=== PATIENT | male | born 1950 ===

== ENCOUNTER 2017-01-23 21:28 | Observation (INO) | payer OTHER ==
[~2017-01-23] VITALS: Ht 170.2 cm; Wt 87.2 kg
[2017-01-24] VITALS (10 sets, daily range): BP systolic 97–144; BP diastolic 50–77
--- NOTE | 2017-01-24 00:09 | ED CLINICAL REPORT ---
Clinical Report - Physicians/Mid Levels [facility] [address] [place] [address] 01/23/2017 21:36 Patient: GRACE VALADEZ Time Seen: 22:15. Arrived- By private vehicle. Historian- patient and family. HISTORY OF PRESENT ILLNESS Chief Complaint: ABDOMINAL PAIN. At its maximum, severity described as moderate. When seen in the E.D., severity described as moderate. Modifying factors- worsened by movement. Relieved by rest. This started today about 4 - 5 hours ago and is still present. It was gradual in onset and has been waxing/waning. It is described as "pain". No radiation. It is described as located in the right abdomen and right lower quadrant. The patient has had nausea and loss of appetite. No vomiting or diarrhea. Similar symptoms previously: None. Recent medical care: Not recently seen/assessed. REVIEW OF SYSTEMS No constipation, black stools, hematemesis, difficulty with urination or pain with urination. No urinary frequency, bloody stools, fever, headache or sore throat. No chest pain, difficulty breathing, cough or back pain. All systems otherwise negative, except as recorded above. PAST HISTORY Hypertension. Gastroesophageal reflux. Arthritis. Surgeries: No history of previous surgery. Additional Surgeries: no known surgeries. Medications: Enalapril Maleate Oral. Nabumetone Oral. Embrol injection. Uknown water pill. PriLOSEC Oral. Allergies: No Known Drug Allergy. SOCIAL HISTORY Never smoker. No alcohol use or drug use. Is a local resident. ADDITIONAL NOTES The nursing notes have been reviewed. PHYSICAL EXAM Vital Signs: 01/23/2017 21:49 BP: 150/70. HR: 66. RR: 24. O2 saturation: 94%. Temp: 97.4 F. Pain level now: 7/10. Appearance: Alert. Oriented X3. Eyes: Pupils equal, round and reactive to light. Eyes normal inspection. No scleral icterus or pale conjunctivae. ENT: Pharynx normal. No pharyngeal erythema or tonsillar exudate. The mucous membranes are not dry. Neck: Normal inspection. Neck supple. CVS: Normal heart rate and rhythm. Heart sounds normal. Pulses normal. Respiratory: No respiratory distress. Breath sounds normal. Abdomen: Soft. Moderate tenderness in the right side of the abdomen and right lower quadrant. No Strauss's sign present. Mild guarding present. No organomegaly. No mass. No rebound tenderness, distention or mass present. Back: Normal inspection. Skin: Skin warm and dry. Normal skin color. No rash. Normal skin turgor. Extremities: Extremities exhibit normal ROM. No lower extremity edema. Neuro: Oriented X 3. No motor deficit. LABS, X-RAYS, AND EKG Abdominal CT: Findings highly suspicious for appendiceal inflammation. Tubular structure measuring 10mm in diameter is identified contiguous with the inferior cecum, just below the terminal ileum. There is slight mesenteric fat stranding. Study type: abdomen and pelvis. Abdominal CT performed with IV contrast. The study was independently viewed by me, interpreted by the radiologist and discussed with the radiologist. Laboratory Tests: CBC w Diff: (GAGE: 01/23/2017 22:31) ( [facility] 01/23/2017 22:43) Final results Test Result Flag Units (Reference) WHITE BLOOD COUNT 15.1 H K/uL (4.5-11.5) RED BLOOD COUNT 5.14 M/uL (4.50-5.90) HEMOGLOBIN 15.1 gm/dL (13.5-17.5) HEMATOCRIT 45.6 % (41.0-53.0) MEAN CELL VOLUME 89 fL (80-100) MEAN CORPUSCULAR HGB 29 pg (26-34) MEAN CORPUSCULAR HGB CONC 33 g/dL (31-37) RED CELL DISTRIBUTION WIDTH 13.4 % (11.6-14.8) PLATELET COUNT 239 K/uL (150-400) LYMPH % 16.6 L % (25-40) MONO % 5.3 % (3-14) GRANULOCYTE % 78.1 CHEM 13 PANEL: (GAGE: 01/23/2017 22:31) ( [facility] 01/23/2017 23:13) Final results Test Result Flag Units (Reference) GLUCOSE 139 H mg/dL (70-110) BUN 18 mg/dL (7-18) CREATININE 1.3 mg/dL (0.6-1.3) Estimated GFR 58.35 mL/min Estimated GFR- >60 mL/min Note: Persistent reduction over 3 months in eGFR<60 mL/min/1.73 m2 defines CKD. Patients with eGFR values>=60 mL/min/1.73 m2 may also have CKD if evidence ofpersistent proteinuria. Additional information may be foundat www.kidney.org. SODIUM 143 mmol/L (136-145) POTASSIUM 3.9 mmol/L (3.5-5.1) CHLORIDE 106 mmol/L (98-107) CARBON DIOXIDE 29 mmol/L (21-32) CALCIUM 9.2 mg/dL (8.5-10.1) TOTAL PROTEIN 7.7 g/dL (6.4-8.2) ALBUMIN 3.7 g/dL (3.3-5.0) BILIRUBIN, TOTAL 0.6 mg/dL (0.0-1.0) ALKALINE PHOSPHATASE 55 U/L (46-116) AST (SGOT) 16 U/L (15-37) ALT (SGPT) 32 U/L (12-78) MAGNESIUM 2.0 mg/dL (1.8-2.4) LIPASE 212 U/L (73-393) AMYLASE 106 U/L (25-115) CPK 118 U/L (24-260) TROPONIN I <0.05 ng/mL (0.00-1.5) TROPONIN REFERENCE RANGE:<0.1 NEGATIVE0.1-1.5 INDETERMINANT>1.5 POSITIVE . Pulse Oximetry: 01/24/2017 01:59 O2 saturation: 97%. (FIO2 - room air). Interpretation: normal. PROGRESS AND PROCEDURES Course of Care: Normal Saline 1 liter IVPB given. Invanz 1 gram IVPB given. Zofran 4 mg IVP given. Dilaudid 0.5 mg IVP given. Patient is stable. Physical exam findings are improved. Symptoms much better. Pt with elevated WBC and CT that is highly suspicious for acute appy. Discussed case with on-call health care provider, (Serge). Reviewed test results. Agreed upon treatment plan. Health care provider will see patient in hospital. Patient/family counseled. Transition orders written. Disposition: Admitted to Acute Care. Condition: stable and improved. CLINICAL IMPRESSION Acute appendicitis. No perforation or abscess. (Electronically signed by Kayden Neri DO 01/24/2017 4:45)
--- NOTE | 2017-01-24 00:09 | ED NURSING NOTES ---
Clinical Report - Nurses [facility] [address] [place] [address] 01/23/2017 21:36 Patient: GRACE VALADEZ TRIAGE Triage time 21:49. Acuity: LEVEL 3. Chief Complaint: ABDOMINAL PAIN. Alert. ALLISON COMA SCORE: Allison Coma Scale: 15- eyes open spontaneously (4); best verbal response- oriented x 4 (5); best motor response- obeys commands (6). --21:54 Camron Espitia R.N. 21:49 01/23/17. BP: 150/70. HR: 66. RR: 24 (regular and unlabored). O2 saturation: 94% on room air. Temp: 97.4 F (oral). Pain level now: 04/01. --21:54 Camron Espitia R.N. Weight: 87 kg stated. Height/Length: 67 inches Per Patient. BMI: 30.1. --21:49 Camron Espitia R.N. Medications PriLOSEC Oral. --21:50 Camron Espitia R.N. Uknown water pill. --21:51 Camron Espitia R.N. Embrol injection. --21:51 Camron Espitia R.N. Enalapril Maleate Oral. Nabumetone Oral. --21:52 Camron Espitia R.N. Allergies No Known Drug Allergy. --21:50 Camron Espitia R.N. History Arrived by private vehicle. Historian: patient. Accompanied by friend. Onset. (4 - 5 hours ago). ( with gas). SOCIAL HX: Never smoker. No alcohol use or drug use. ( Denies SI/HI/ABUSE). ABUSE ASSESSMENT: No report of abuse. SELF HARM ASSESSMENT: A self harm assessment was performed. The patient answered "no" to the question "Do you have thoughts of harming or killing yourself?" and "Are you here because you tried to hurt yourself?". FALL RISK ASSESSMENT: Fall risk assessment completed. No fall risk identified. NUTRITIONAL RISK ASSESSMENT: The nutritional risk assessment revealed no deficiencies. FUNCTIONAL ASSESSMENT: Functional assessment: no impairments noted. LEARNING NEEDS ASSESSMENT: The learning needs assessment revealed no barriers. SKIN INTEGRITY ASSESSMENT: Skin integrity risk assessment completed. No skin integrity risk identified. --21:54 Camron Espitia R.N. PROBLEMS: Gastroesophageal Reflux Disease. Arthritis. Hypertension. --21:53 Camron Espitia R.N. ADDITIONAL SURGERIES: no known surgeries. Interventions ID band on patient. To treatment room. --21:54 Camron Espitia R.N. PHYSICAL ASSESSMENT Ambulatory to room. GENERAL / NEURO / PSYCH: Alert. Oriented X 4. Appears in pain. HEENT: Mucous membranes are pink. RESPIRATORY: Respirations not labored. Decreased breath sounds in the right lung base, mid-lung and upper lung. CVS: Capillary refill less than 2 seconds. GI / : Obesity. Abdominal distention. Abdomen soft. Abdominal tenderness diffusely. Hyperactive bowel sounds. SKIN: Skin is warm and dry. --21:56 Camron Espitia R.N. ( Urine sample requested and instructions given). --23:41 Camron Espitia R.N. NURSING PROGRESS NOTES Pulse oximeter and NIBP monitor placed on patient. Patient gowned. Reassurance given. Two patient identifiers checked. Call light placed in reach. Side rails up x 1. Bed placed in lowest position. Brakes of bed on. Patient ready for evaluation- chart flagged. Patient waiting for evaluation. --21:57 Camron Espitia R.N. 22:31 01/23/2017 Site #1 started via IV in the right antecubital space with an 18g angiocath, with aseptic technique and good blood return; one attempt. Blood drawn: rainbow set. Labeled in the presence of the patient and sent to the lab. Saline lock flushed with 10 mL saline. --22:37 Michaela Arteaga R.N. 22:39 01/23/2017 Started bag #1 1000 mL IV Fluids IV NS (Saline); bolus of 1000 mL wide open via site #1. Allergies verified and confirmed 5 rights. IV patency established. IV site checked: no pain, redness, or swelling. IV flushed thoroughly pre- and post-medication administration. --22:39 Michaela Arteaga R.N. 23:36 01/23/2017 Zofran (Ondansetron HCl) IVP 4 mg given over 1 minute(s) via site #1. Allergies verified and confirmed 5 rights. IV patency established. IV site checked: no pain, redness, or swelling. IV flushed thoroughly pre- and post-medication administration. IVP given by RN. --23:41 Camron Espitia R.N. 23:39 01/23/2017 Dilaudid (HYDROmorphone HCl PF) IVP 0.5 mg given over 2 minute(s) via site #1. Allergies verified, confirmed 5 rights and sedative warning given to the patient. IV patency established. IV site checked: no pain, redness, or swelling. IV flushed thoroughly pre- and post-medication administration. IVP given by RN. --23:41 Camron Espitia R.N. 00:31 01/24/2017 Invanz IVP 1 gm given over 30 minute(s) via site #1. Allergies verified and confirmed 5 rights. IV patency established. IV site checked: no pain, redness, or swelling. IV flushed thoroughly pre- and post-medication administration. IVP given by RN. --00:31 Camron Espitia R.N. DISPOSITION / DISCHARGE Departure time: 02:04. Condition at departure: stable. Admitted (rm 210B). Transported via wheelchair by nurse with IV. Report was given to a nurse via a phone call. Report included patient's care, treatment, medications, reviewed medication reconcilliation, and condition (including any recent changes or anticipated changes). All questions were answered. Report was acknowledged. (report to leny MEDINA). Patient's personal items include: shirt, pants, socks and shoes; items were placed in belongings bag and transported with the patient. --02:05 Camron Espitia R.N. 01:59 01/24/17. BP: 123/68. HR: 100. RR: 20 (regular and unlabored). O2 saturation: 97% on room air. Pain level now: 11/30. --02:05 Camron Espitia R.N. Locked/Released at 01/24/2017 2:05 by Camron Espitia R.N.
--- NOTE | 2017-01-24 00:10 | ED ORDER SUMMARY ---
..... Patient: GRACE VALADEZ OrderSheet [facility] VisitID: [id number] [place] [address] 66y, M Registration Date/Time: 01/23/2017 ORDER SHEET Weight: 87.0 kg (stated) Allergies: No Known Drug Allergy GENERAL ORDERS: CBC w Diff Urgent (22:00 01/23/2017 DDavis R.N. per protocol) (Ack 22:03 CHagerty ER Support Worker) (22:20 PHutchinson DO) (Cancelled: Duplicate Order22:20 PHutchinson DO) CMP Urgent (22:00 01/23/2017 DDavis R.N. per protocol) (Ack 22:03 [facility]ty ER Support Worker) (22:21 PHutchinson DO) (Cancelled: Duplicate Order22:21 PHutchinson DO) UA-Culture if indicated Urgent (22:00 01/23/2017 DDavis R.N. per protocol) (Ack 22:03 [facility] Support Worker) (0:13 DDavis R.N.) Amylase Urgent (22:00 01/23/2017 DDavis R.N. per protocol) (Ack 22:03 [facility]ty ER Support Worker) (22:37 CBradburn R.N.) Lipase Urgent (22:00 01/23/2017 DDavis R.N. per protocol) (Ack 22:03 [facility] ER Support Worker) (22:37 CBradburn R.N.) Cardiac Panel Stat (22:21 01/23/2017 PHutchinson DO) (Ack 22:30 [facility]ty [facility] Support Worker) (22:37 CBradburn R.N.) CT Abd/Pel w Cont (No) (N/A) (WBC 15K; Right mid - lower abd pain) Urgent (22:55 01/23/2017 PHutchinson DO) (Ack 23:03 CH[facility]ty ER Support Worker) (0:09 Sherlyn) Call (Place call to): (Dr Valentine) (00:11 01/24/2017 PHutchinson DO) (Ack 0:15 CH[facility]ty [facility] Support Worker) (0:32 CHagerty ER Support Worker) MEDICATION ORDERS: IV FLUIDS: IV Saline Lock (22:00 01/23/2017 DDavis R.N. per protocol) (22:38 CBradburn R.N.) IV NS : initial bolus 1000 mL (1000 mL/hr), then 500 mL/hr for X2 (NOW) (22:21 01/23/2017 [facility]) (Ack 22:38 CBradburn R.N.) (22:39 CBradburn R.N.) Zofran IV 4 mg (NOW) (23:28 01/23/2017 [facility]) (23:41 DDavis R.N.) Dilaudid IV 0.5 mg (january repeat x 1 prn pain) (23:28 01/23/2017 [facility]) (23:41 DDavis R.N.) Invanz IV 1 gm (NOW) (00:11 01/24/2017 [facility]) (0:31 DDavis R.N.) ORDER SHEET NOTES: [Electronically signed by Camron Espitia R.N. (02:05 01/24/2017)] [Electronically signed by Kayden Neri DO (04:45 01/24/2017)] [Electronically locked/signed by Camron Espitia R.N. (02:05 01/24/2017)]
--- NOTE | 2017-01-24 00:10 | ED ORDER SUMMARY ---
..... Patient: GRACE VALADEZ OrderSheet [facility] VisitID: [id number] [place] [address] 66y, M Registration Date/Time: 01/23/2017 ORDER SHEET Weight: 87.0 kg (stated) Allergies: No Known Drug Allergy GENERAL ORDERS: CBC w Diff Urgent (22:00 01/23/2017 DDavis R.N. per protocol) (Ack 22:03 [facility]ty [facility]) (22:20 PHutchinson DO) (Cancelled: Duplicate Order22:20 PHutchinson DO) CMP Urgent (22:00 01/23/2017 DDavis R.N. per protocol) (Ack 22:03 [facility]) (22:21 PHutchinson DO) (Cancelled: Duplicate Order22:21 PHutchinson DO) UA-Culture if indicated Urgent (22:00 01/23/2017 DDavis R.N. per protocol) (Ack 22:03 [facility]) (0:13 DDavis R.N.) Amylase Urgent (22:00 01/23/2017 DDavis R.N. per protocol) (Ack 22:03 [facility]) (22:37 CBradburn R.N.) Lipase Urgent (22:00 01/23/2017 DDavis R.N. per protocol) (Ack 22:03 [facility]) (22:37 CBradburn R.N.) Cardiac Panel Stat (22:21 01/23/2017 PHutchinson DO) (Ack 22:30 [facility]) (22:37 CBradburn R.N.) CT Abd/Pel w Cont (No) (N/A) (WBC 15K; Right mid - lower abd pain) Urgent (22:55 01/23/2017 PHutchinson DO) (Ack 23:03 [facility]) (0:09 Sherlyn) Call (Place call to): (Dr Valentine) (00:11 01/24/2017 PHutchinson DO) (Ack 0:15 [facility]) (0:32 [facility]) MEDICATION ORDERS: IV FLUIDS: IV Saline Lock (22:00 01/23/2017 DDavis R.N. per protocol) (22:38 CBradburn R.N.) IV NS : initial bolus 1000 mL (1000 mL/hr), then 500 mL/hr for X2 (NOW) (22:21 01/23/2017 [facility]) (Ack 22:38 CBradburn R.N.) (22:39 CBradburn R.N.) Zofran IV 4 mg (NOW) (23:28 01/23/2017 [facility]) (23:41 DDavis R.N.) Dilaudid IV 0.5 mg (january repeat x 1 prn pain) (23:28 01/23/2017 [facility]) (23:41 DDavis R.N.) Invanz IV 1 gm (NOW) (00:11 01/24/2017 [facility]) (0:31 DDavis R.N.) ORDER SHEET NOTES: [Electronically signed by Camron Espitia R.N. (02:05 01/24/2017)] [Electronically signed by Kayden Neri DO (04:45 01/24/2017)] [Electronically locked/signed by Camron Espitia R.N. (02:05 01/24/2017)]
[2017-01-24] MEDS ORDERED: ENBREL25 MG (02:01)
[2017-01-24] MEDS ORDERED: ASPIRIN ADULT L81 M1 PO (04:36)
[2017-01-24] MEDS ORDERED: LISINOPRIL10 MG PO (04:37)
[2017-01-24] MEDS ORDERED: NABUMETONE750 MG PO (04:39)
[2017-01-24] MEDS ORDERED: PRILOSEC20 MG PO (04:40)
--- NOTE | 2017-01-24 04:45 | ED DISCHARGE INSTRUCTIONS ---
Patient: GRACE VALADEZ General Instructions VisitID: [id number] [address] [place] [address] 66y, M Registration Date/Time: 01/23/2017 Acute appendicitis. No perforation or abscess. (Electronically signed by Kayden Neri DO 01/24/2017 4:45)
--- NOTE | 2017-01-24 04:45 | ED MED RECONCILIATION SUMMARY ---
Patient: GRACE VALADEZ Medication Reconciliation Report [facility] VisitID: [id number] [address] [place] [address] 66y, M Registration Date/Time: 01/23/2017 Weight: 87.0 kg Height/Length: 67 in. BMI: 30.1 ALLERGIES: No Known Drug Allergy The patient's Home Medications are listed below: THE FOLLOWING MEDICATIONS NEED TO BE RECONCILED: Embrol injection Enalapril Maleate Oral Nabumetone Oral PriLOSEC Oral Uknown water pill The source(s) of the original Home Medication information: Not obtained. The following Medications were given to the patient in the Emergency Department: IV NS IV Fluids bolus 1000 mL wide open, administered: 01/23/2017 10:39:00 PM Zofran [IVP] IVP 4 mg, administered: 01/23/2017 11:36:00 PM Dilaudid [IVP] IVP 0.5 mg, administered: 01/23/2017 11:39:00 PM Invanz [IVP] IVP 1 gm, administered: 01/24/2017 12:31:00 AM The following Medications were prescribed to the patient: None.
--- NOTE | 2017-01-24 04:45 | ED MAR SUMMARY ---
..... Medication Administration Record [facility] [address] [place] [address] Patient: GRACE VALADEZ Visit ID: [id number] 66y, M Weight: 87.0 kg Height/Length: 67 in BMI: 30.1 ALLERGIES: No Known Drug Allergy Start 22:39 01/23/2017 Michaela Arteaga R.N. Medication Administered: IV NS (SALINE), Dose: IV Fluids, Bolus: 1000 mL wide open, Dispensed: 1000 mL bag, Site: #1 right AC. Medication Ordered: IV NS : initial bolus 1000 mL (1000 mL/hr), then 500 mL/hr for X2 (NOW). Given 23:36 01/23/2017 Camron Espitia R.N. Medication Administered: ZOFRAN [IVP] (ONDANSETRON HCL), Dose: 4 mg IVP over 1 minute(s), Site: #1 right AC. Medication Ordered: Zofran IV 4 mg (NOW). Given 23:39 01/23/2017 Camron Espitia R.N. Medication Administered: DILAUDID [IVP] (HYDROMORPHONE HCL PF), Dose: 0.5 mg IVP over 2 minute(s), Site: #1 right AC. Medication Ordered: Dilaudid IV 0.5 mg (may repeat x 1 prn pain). Given 00:31 01/24/2017 Camron Espitia R.N. Medication Administered: INVANZ [IVP], Dose: 1 gm IVP over 30 minute(s), Site: #1 right AC. Medication Ordered: Invanz IV 1 gm (NOW).
--- NOTE | 2017-01-24 04:45 | ED MAR SUMMARY ---
..... Medication Administration Record [facility] [address] [address] Patient: GRACE VALADEZ Visit ID: [id number] 66y, M Weight: 87.0 kg Height/Length: 67 in BMI: 30.1 ALLERGIES: No Known Drug Allergy Start 22:39 01/23/2017 Michaela Arteaga R.N. Medication Administered: IV NS (SALINE), Dose: IV Fluids, Bolus: 1000 mL wide open, Dispensed: 1000 mL bag, Site: #1 right AC. Medication Ordered: IV NS : initial bolus 1000 mL (1000 mL/hr), then 500 mL/hr for X2 (NOW). Given 23:36 01/23/2017 Camron Espitia R.N. Medication Administered: ZOFRAN [IVP] (ONDANSETRON HCL), Dose: 4 mg IVP over 1 minute(s), Site: #1 right AC. Medication Ordered: Zofran IV 4 mg (NOW). Given 23:39 01/23/2017 Camron Espitia R.N. Medication Administered: DILAUDID [IVP] (HYDROMORPHONE HCL PF), Dose: 0.5 mg IVP over 2 minute(s), Site: #1 right AC. Medication Ordered: Dilaudid IV 0.5 mg (may repeat x 1 prn pain). Given 00:31 01/24/2017 Camron Espitia R.N. Medication Administered: INVANZ [IVP], Dose: 1 gm IVP over 30 minute(s), Site: #1 right AC. Medication Ordered: Invanz IV 1 gm (NOW).
--- NOTE | 2017-01-24 04:45 | ED MED RECONCILIATION SUMMARY ---
Patient: GRACE VALADEZ Medication Reconciliation Report [facility] VisitID: [id number] [address] [place] [address] 66y, M Registration Date/Time: 01/23/2017 Weight: 87.0 kg Height/Length: 67 in. BMI: 30.1 ALLERGIES: No Known Drug Allergy The patient's Home Medications are listed below: THE FOLLOWING MEDICATIONS NEED TO BE RECONCILED: Embrol injection Enalapril Maleate Oral Nabumetone Oral PriLOSEC Oral Uknown water pill The source(s) of the original Home Medication information: Not obtained. The following Medications were given to the patient in the Emergency Department: IV NS IV Fluids bolus 1000 mL wide open, administered: 01/23/2017 10:39:00 PM Zofran [IVP] IVP 4 mg, administered: 01/23/2017 11:36:00 PM Dilaudid [IVP] IVP 0.5 mg, administered: 01/23/2017 11:39:00 PM Invanz [IVP] IVP 1 gm, administered: 01/24/2017 12:31:00 AM The following Medications were prescribed to the patient: None.
--- NOTE | 2017-01-24 04:45 | ED DISCHARGE INSTRUCTIONS ---
Patient: GRACE VALADEZ General Instructions [facility] VisitID: [id number] [address] [place] [address] 66y, M Registration Date/Time: 01/23/2017 Acute appendicitis. No perforation or abscess. (Electronically signed by Kayden Neri DO 01/24/2017 4:45)
--- NOTE | 2017-01-24 06:28 | Consultation Report ---
Admission Admit Date 01/24/17 History Chief Complaint Right lower quadrant abdominal pain History of Present Illness 66-year-old male who approximately 14 hours ago developed acute onset right lower quadrant abdominal pain. Localized. Constant. Sharp. Exacerbated by coughing or moving. Associated with nausea and chills but no vomiting or fever or diarrhea. Patient denies any prior history of abdominal pain like this in the past. PAST MEDICAL SURGICAL: Tonsillectomy and adenoidectomy Bilateral cataract extraction Psoriatic arthritis ALLERGIES: None FAMILY HISTORY: MOTHER age/health status unknown FATHER age/health status unknown 4 brothers and 3 sisters alive and well. Patient History 1. Acute appendicitis Social History 2 sons and 2 daughters alive and well Patient stopped smoking 15-20 years ago Patient does not drink alcohol Patient drinks 3-4 cups of coffee per day Patient does not use recreational drugs. Patient is a septic intermodal truck driver by occupation No service. Medications and Allergies Medications MEDICATION: Patient is on a antihypertensive medication that he cannot really name Patient is also on a medication for his stomach that he cannot remember Patient receives IM injection once a week for his psoriatic arthritis Current Medications Sig/Dilan Start time Last Medication Dose Route Stop Time Status Admin Famotidine/Sodium 50 ML Q12HR 01/24 0900 AC Chloride IV Metoclopramide HCl 10 MG Q6HR 01/24 0600 AC 01/24 IV 0534 Lactated Ringer's 1,000 ML ASDIRECTED 01/24 0115 AC / IV 0232 Meperidine HCl 12.5 MG Q30MIN PRN 01/24 0115 AC IV Ondansetron HCl 4 MG Q6H PRN 01/24 0115 AC IV Allergies Coded Allergies: NKA (01/24/17) Review of Systems Other Patient denies any history of hepatitis, jaundice, rheumatic fever, heart murmurs requiring antibiotics, bleeding tendencies, or blood transfusions. 12 point review of systems negative. Physical Exam Vital Signs / I&Os Vital Signs Date Time Temp Pulse Resp B/P Pulse O2 O2 Flow FiO2 Ox Delivery Rate 01/24 618 100.2 133 21 114/65 95 / 0448 100.8 108 15 117/58 94 Room Air / 0345 98.4 102 14 140/77 98 Room Air / 0219 97.5 101 15 144/76 97 Room Air / 0105 98.6 86 18 144/67 99 Room Air General Appearance Alert, Oriented X3, Cooperative, Mild distress HEENT Normal exam, Atraumatic, PERRLA, EOMI, patient wearing upper and lower dentures. Lungs Clear to auscultation Neck Supple, No JVD, No masses, No thyromegaly, No lymphadenopathy Cardiovascular Regular rate and rhythm Abdomen Normal bowel sounds, nondistended. No tympany. localized guarding right lower quadrant. Extremities No edema Skin no peripheral cyanosis Neurological No lateralizing signs Psych/Mental Status Mood normal Other Patient has a flexure contracture this digit left hand LAB Results Laboratory Tests 01/23 01/23 01/24 2200 2231 0001 Chemistry Plasma Sodium (136 - 145 mmol/L) 143 Plasma Potassium (3.5 - 5.1 mmol/L) 3.9 Plasma Chloride (98 - 107 mmol/L) 106 CO2 (Enzymatic) (21 - 32 mmol/L) 29 BUN (7 - 18 mg/dL) 18 Creatinine (0.6 - 1.3 mg/dL) 1.3 Est GFR ( Amer) (mL/min) >60 Est GFR (Non-Af Amer) (mL/min) 58.35 Glucose (70 - 110 mg/dL) 139 Plasma Calcium (8.5 - 10.1 mg/dL) 9.2 Plasma Magnesium (1.8 - 2.4 mg/dL) 2.0 Total Bilirubin (0.0 - 1.0 mg/dL) 0.6 AST (15 - 37 U/L) 16 ALT (12 - 78 U/L) 32 Alkaline Phosphatase (46 - 116 U/L) 55 Creatine Kinase (24 - 260 U/L) 118 Troponin (0.00 - 1.5 ng/mL) <0.05 Total Protein (6.4 - 8.2 g/dL) 7.7 Albumin (3.3 - 5.0 g/dL) 3.7 Amylase (25 - 115 U/L) Cancelled 106 Lipase (73 - 393 U/L) Cancelled 212 Hematology WBC (4.5 - 11.5 K/uL) Cancelled 15.1 RBC (4.50 - 5.90 M/uL) Cancelled 5.14 Hgb (13.5 - 17.5 gm/dL) Cancelled 15.1 Hct (41.0 - 53.0 %) Cancelled 45.6 MCV (80 - 100 fL) Cancelled 89 MCH (26 - 34 pg) Cancelled 29 RDW (11.6 - 14.8 %) Cancelled 13.4 Gran % 78.1 Lymph % (Auto) (25 - 40 %) 16.6 [place] % (Auto) (3 - 14 %) 5.3 Plt Count, EDTA (150 - 400 K/uL) Cancelled 239 PUBS MCHC (31 - 37 g/dL) Cancelled 33 Urines Urine Color YELLOW Urine Appearance CLEAR Urine pH (5.0 - 8.0) 7.0 Ur Specific [place] (1.010 - 1.030) <= 1.005 Urine Protein (NEGATIVE) NEGATIVE Urine Ketones (NEGATIVE) NEGATIVE Urine Blood (NEGATIVE) NEGATIVE Urine Nitrite (NEGATIVE) NEGATIVE Urine Bilirubin (NEGATIVE) NEGATIVE Urine Urobilinogen (0.2 - 1.0 EU/dL) 0.2 Ur Leukocyte Esterase (NEGATIVE) NEGATIVE Urine RBC (0 - 1 rbc/hpf) 0-1 Urine WBC (0 - 1 wbc/hpf) 0-1 Ur Epithelial Cells (0 - 5 EPI/hpf) 0-1 Urine Bacteria (NONE SEEN) NONE SEEN Urine Glucose (NEGATIVE) NEGATIVE Urine Comment CULT NOT INDICATED Imaging CAT scan consistent with acute appendicitis as interpreted by radiology. Assessment and Plan Problem List 1. Acute appendicitis Plan Acute appendicitis. Plan laparoscopic appendectomy. The procedure has been explained to the patient including the potential risks of trocar site hernia, infection, intra-abdominal infection, and damage to local structures. Patient understands and agrees to proceed. We will schedule him for emergent laparoscopic appendectomy.
--- NOTE | 2017-01-24 07:12 | DIAGNOSTIC IMAGING REPORT ---
PROCEDURE: ABDOMEN/PELVIS WITH CONTRAST CLINICAL INDICATION: ABDOMINAL PAIN TECHNIQUE: 125 ml of Isovue 300 were injected intravenously and axial images were obtained of the abdomen and pelvis with sagittal and coronal reformations. COMPARISON: None. FINDINGS: ABDOMEN: Clear lung bases. Normal sized heart. Tiny hiatal hernia. Air fluid level in the distal esophagus. The liver, gallbladder, adrenal glands, kidneys, pancreas and spleen are normal. The abdominal aorta is normal in its course and caliber. Mild calcific atherosclerosis. There are no suspicious calcifications, retroperitoneal adenopathy or masses. The stomach, upper bowel loops, and mesentery are normal. Intact anterior abdominal wall. No free fluid or inflammation. The appendix is fluid-filled, dilated up to 14 mm, and demonstrates trace rosi appendiceal fat stranding. No adjacent fluid, extraluminal gas, or focal fluid collection. PELVIS: The pelvic small bowel loops are normal. Normal amount of stool in the colon and rectum. The prostate gland is mildly enlarged. The seminal vesicles, urinary bladder, and pelvic vessels are normal. No adenopathy, free fluid, or pelvic mass. Moderate to severe disc degeneration at L4-5 and L5-S1. IMPRESSION: 1. Dilated, fluid-filled, and mildly inflamed appendix consistent with early/uncomplicated acute appendicitis. 2. Preliminary report by Dr. Je Tanner of [facility] radiology. All CT scans at this facility use dose modulation, iterative reconstruction, and/or weight-based dosing when appropriate to reduce radiation dose to as low as reasonably achievable.
--- NOTE | 2017-01-24 11:21 | Operative Report ---
Operative Report Date of Surgery: 01/24/17 Preoperate Diagnosis: acute appendicitis Postoperative Diagnosis: acute appendicitis Surgeon: Raymond Valentine MD Microfilm Camera Operator Surgeon: none Procedure Performed: Arthroscopic appendectomy Anesthesia: Gen. endotracheal Indications: 66-year-old male admitted with a 14 hour history of progressive right lower quadrant abdominal pain. Emergency room evaluation CT scan showed evidence consistent with appendicitis FINDINGS: Acute hemorrhagic the mesoappendix and hemorrhagic additional appendicitis. Surgical Technique: Patient brought to the operating room. Placed in the dorsal supine position. Patient underwent general endotracheal anesthesia by the anesthesiology department. After proper anesthesia had taken effect patient's abdomen was prepped using Betadine and draped in a sterile fashion. An infraumbilical incision made clear down to skin and subcutaneous tissue and varies needle was inserted through this site into the abdominal cavity. After ascertaining its appropriate position with suction irrigation and pneumoperitoneum obtained using CO2 insufflation trocar suture 14 15 mmHg pressure. Once this pressure was reached varies needle was removed and replaced the 10 mm trocar. The trocar removed after which which a laparoscopic video camera was introduced into the abdominal cavity. Under direct visualization a 5 mm trocar was placed in the suprapubic region. A separate 10 mm trocar was placed in the left lower quadrant. Each entered the abdominal cavity under direct visualization. The trochars removed , leaving the sleeves behind. Instrumentation was introduced into the abdominal cavity. The aforementioned findings noted, the appendix was identified and the meso- appendix was taken down using the ThunderBeat. The base of the appendix was clipped using the hemo-lock. The appendix was then transected between the hemo-lock using the Endo Nba. The appendix was placed in a sterile specimen container bag and retrieved from the abdominal cavity and sent to pathology. The appendiceal stump was cauterized using the ThunderBeat. The abdominal cavity right lower quadrant and pelvis was irrigated with warm normal saline antibiotic solution. The irrigant suctioned out. Hemostasis achieved. The pneumoperitoneum released. All trochars removed from the abdominal cavity. All trochar sites were approximated using 4-0 subdermal Polysorb suture. Steri-Strips were placed over the wound. Sterile occlusive dressings were placed over each surgical site. Patient was extubated and transferred to recovery room in stable condition. There were no intraoperative complications. CONDITION: Stable to postoperative anesthesia recovery room COMPLICATIONS: None ESTIMATED BLOOD LOSS: None FLUIDS: 800 cc lactated Ringer's DRAINS: None SPECIMEN: Appendix
[2017-01-24] MEDS ORDERED: HYCET1 ML PO (16:47)
--- NOTE | 2017-01-24 16:48 | Provider's Discharge Care Plan ---
Problem, Goal, Plan Problem List 1. S/P LAP APPY Goals: Improve disease control, Therapeutic intervention Instructions: Follow up as directed, Take meds as directed
--- NOTE | 2017-01-24 16:48 | Provider's Discharge Care Plan ---
Problem, Goal, Plan Problem List 1. S/P LAP APPY Goals: Improve disease control, Therapeutic intervention Instructions: Follow up as directed, Take meds as directed
== END 2017-01-24 18:00 | disposition home or self-care (01) ==
LOC: ED SRH 21:28 → TRANS SRH 01-24 00:25 → ACUTE2 SRH 01-24 00:25
PROVIDERS: ADMIT Specialist
PROC: 0DTJ4ZZ Resection of Appendix, Percutaneous Endoscopic Approach (ICD-10-PCS; principal; 2017-01-24 09:30)
DX: K35.80 Unspecified acute appendicitis (principal); I10 Essential (primary) hypertension
CPT/HCPCS: 29229; 29230; 29259; 50002; 60001; 70002; 80212; 80248; 82669; 82794; 82897; 83338; 83343; 83526; 83587; 83920; 83982; 84038; 90004; 90100; 90616; 92235; 92530; 92610; 92720; 95059

== ENCOUNTER 2017-02-15 11:47 | Emergency (ER) | payer OTHER ==
[~2017-02-15 11:47] MED LIST: ASPIRIN ADULT L81 M1 PO; ENBREL25 MG; HYCET1 ML PO; LISINOPRIL10 MG PO; NABUMETONE750 MG PO; PRILOSEC20 MG PO
--- NOTE | 2017-02-15 13:46 | ED CLINICAL REPORT ---
Clinical Report - Physicians/Mid Levels [facility] [address] [place] [address] 02/15/2017 11:51 Patient: GRACE VALADEZ Time Seen: 12:07; initial patient contact. Arrived- By private vehicle. Historian- patient. HISTORY OF PRESENT ILLNESS Chief Complaint: ABDOMINAL PAIN. At its maximum, severity described as moderate. When seen in the E.D., it was gone. It is described as "pain". No radiation. It is described as located in the right abdomen. This started yesterday and is now gone. No nausea, loss of appetite, vomiting or diarrhea. Similar symptoms previously: None. Recent medical care: The patient was seen recently by a health care provider (Sent from [facility] for suspicions of a colic vein thrombus.). REVIEW OF SYSTEMS No constipation, black stools, hematemesis, difficulty with urination or pain with urination. No urinary frequency, bloody stools, fever or chills. All systems otherwise negative, except as recorded above. PAST HISTORY Appendicitis. Gastroesophageal Reflux. Gastroesophageal Reflux Disease. Arthritis. Hypertension. SURGERIES: Appendectomy. Medications: Lisinopril Oral. Embrol injection. Enalapril Maleate Oral. Nabumetone Oral. PriLOSEC Oral. Allergies: No Known Drug Allergy. SOCIAL HISTORY Former smoker. No alcohol use or drug use. ADDITIONAL NOTES The nursing notes have been reviewed. PHYSICAL EXAM Vital Signs: 02/15/2017 11:58 BP: 147/61. HR: 73. RR: 16. O2 saturation: 98%. Temp: 97.8 F. Pain level now: 10/02. Have been reviewed. Hypertensive. Heart rate normal. Respiratory rate normal. Temperature normal. Oxygen saturation normal. Appearance: Alert. Oriented X3. No acute distress. ENT: Pharynx normal. The mucous membranes are not dry. CVS: Normal heart rate and rhythm. Heart sounds normal. Respiratory: No respiratory distress. Breath sounds normal. Abdomen: Soft and nontender. Bowel sounds normal. No organomegaly. No mass. Back: Normal inspection. No CVA tenderness. Skin: Skin warm and dry. Normal skin color. Extremities: No lower extremity edema. Neuro: Oriented X 3. LABS, X-RAYS, AND EKG Laboratory Tests: CBC w Diff: (GAGE: 02/15/2017 12:05) ( [facility] 02/15/2017 12:34) Final results Test Result Flag Units (Reference) WHITE BLOOD COUNT 6.7 K/uL (4.5-11.5) RED BLOOD COUNT 4.57 M/uL (4.50-5.90) HEMOGLOBIN 13.2 L gm/dL (13.5-17.5) HEMATOCRIT 39.7 L % (41.0-53.0) MEAN CELL VOLUME 87 fL (80-100) MEAN CORPUSCULAR HGB 29 pg (26-34) MEAN CORPUSCULAR HGB CONC 33 g/dL (31-37) RED CELL DISTRIBUTION WIDTH 14.0 % (11.6-14.8) PLATELET COUNT 493 H K/uL (150-400) NEUTROPHIL % 50.6 % (50-75) LYMPH % 34.8 % (25-40) MONO % 12.1 % (3-14) EOSINOPHIL % 1.9 % (0-4) BASOPHIL % 0.6 % (0-2) [id number]: (GAGE: 02/15/2017 12:30) ( [facility] 02/15/2017 13:04) Final results Test Result Flag Units (Reference) LACTIC ACID SEPSIS PROTOCOL 1.7 mmol/L (0.4-2.0) CMP: (GAGE: 02/15/2017 12:05) ( [facility] 02/15/2017 12:41) Final results Test Result Flag Units (Reference) GLUCOSE 117 H mg/dL (70-110) BUN 11 mg/dL (7-18) CREATININE 1.3 mg/dL (0.6-1.3) Estimated GFR 58.35 mL/min Estimated GFR- >60 mL/min Note: Persistent reduction over 3 months in eGFR<60 mL/min/1.73 m2 defines CKD. Patients with eGFR values>=60 mL/min/1.73 m2 may also have CKD if evidence ofpersistent proteinuria. Additional information may be foundat www.kidney.org. SODIUM 140 mmol/L (136-145) POTASSIUM 4.1 mmol/L (3.5-5.1) CHLORIDE 104 mmol/L (98-107) CARBON DIOXIDE 24 mmol/L (21-32) CALCIUM 8.8 mg/dL (8.5-10.1) TOTAL PROTEIN 8.0 g/dL (6.4-8.2) ALBUMIN 3.5 g/dL (3.3-5.0) BILIRUBIN, TOTAL 0.6 mg/dL (0.0-1.0) ALKALINE PHOSPHATASE 131 H U/L (46-116) AST (SGOT) 38 H U/L (15-37) ALT (SGPT) 65 U/L (12-78) . PROGRESS AND PROCEDURES Consult obtained from surgery. call returned 13:42 Dr. Hanks, noah Lactate and pain free and eating w/out diarrhea, likely no clot, D/C's pt from ED to f/u w/ PCP. Disposition: Discharged home in good condition. Condition: good. CLINICAL IMPRESSION Acute generalized abdominal pain of unknown cause, now resolved. INSTRUCTIONS Your Current Medications: CONTINUE TAKING THE FOLLOWING MEDICATIONS: Embrol injection*. Enalapril Maleate Oral. Lisinopril Oral. Nabumetone Oral. PriLOSEC Oral. Follow-up: Follow up with your doctor in about two days. Call for an appointment. Blood pressure screening was not performed during this visit because the patient has an active diagnosis of hypertension. (Electronically signed by Pilo Richards Dr. 02/15/2017 14:00)
--- NOTE | 2017-02-15 13:46 | ED ORDER SUMMARY ---
..... Patient: GRACE VALADEZ OrderSheet [facility] VisitID: [id number] [place] [address] 66y, M Registration Date/Time: 02/15/2017 ORDER SHEET Weight: 87.0 kg (stated) Allergies: No Known Drug Allergy GENERAL ORDERS: CBC w Diff Urgent (12:20 02/15/2017 Obdulia Guadarrama) (Ack 12:21 PWeiler ER Tech1) (12:45 JSimbeck R.N.) CMP Urgent (12:20 02/15/2017 Obdulia Guadarrama) (Ack 12:21 PWeiler ER Tech1) (12:45 Eugenie R.N.) Lactic Acid for Sepsis Protocol Urgent (12:20 02/15/2017 Obdulia Guadarrama) (Ack 12:21 PWeiler ER Tech1) (13:03 PWeiler ER Tech1) CT Abd/Pel w Cont (No) (07/24.3) Urgent (13:07 02/15/2017 Obdulia Guadarrama) (Ack 13:17 PWeiler ER Tech1) (Cancelled: Physician Order13:22 Obdulia Guadarrama) MEDICATION ORDERS: IV FLUIDS: IV NS : initial bolus none -, then 1000 mL/hr for X1 (NOW) (12:19 02/15/2017 Obdulia Guadarrama) (12:53 Eugenie R.N.) ORDER SHEET NOTES: [Electronically signed by Pilo Richards Dr. (14:00 02/15/2017)] [Electronically signed by Flores Jacobs R.N. (14:13 02/15/2017)] [Electronically locked/signed by Flores Jacobs R.N. (14:13 02/15/2017)]
--- NOTE | 2017-02-15 13:46 | ED NURSING NOTES ---
Clinical Report - Nurses [facility] [place] [address] [address] 02/15/2017 11:51 Patient: GRACE VALADEZ TRIAGE Triage time 11:58. Acuity: LEVEL 3. Chief Complaint: (Severe night sweats since appy surgery on January 25.). SEPSIS SCREEN: Sepsis Screen. Negative (no infection suspected/documented). --12:05 Amanuel Nelson R.N. 11:58 02/15/17. BP: 147/61. HR: 73. RR: 16. O2 saturation: 98% on room air. Temp: 97.8 F. Pain level now: 10/02. --12:05 Amanuel Nelson R.N. Weight: 87 kg stated. Height/Length: 67 inches Per Patient. BMI: 30.1. --12:02 Amanuel Nelson R.N. Medications Embrol injection. Enalapril Maleate Oral. Nabumetone Oral. PriLOSEC Oral. --12:00 Amanuel Nelson R.N. Lisinopril Oral. --12:01 mAanuel Nelson R.N. Allergies No Known Drug Allergy. --12:00 Amanuel Nelson R.N. History Arrived by private vehicle. Historian: patient and family. Accompanied by family. SOCIAL HX: Former smoker, end date 2001. No alcohol use or drug use. No recent travel. No known contact with a sick individual. ABUSE ASSESSMENT: No report of abuse. --12:05 Amanuel Nelson R.N. PROBLEMS: Appendicitis. Gastroesophageal Reflux. Gastroesophageal Reflux Disease. Arthritis. Hypertension. --12:01 Amanuel Nelson R.N. ADDITIONAL SURGERIES: Appendectomy. --12:01 Amanuel Nelson R.N. Assessment GENERAL / NEURO / PSYCH: Alert. Oriented X 4. Appears in no acute distress. Patient appears calm and cooperative. RESPIRATORY: Respirations not labored. Chest nontender. Breath sounds within normal limits. CVS: Capillary refill less than 2 seconds. GI / : Abdomen soft and nontender. SKIN: Mucous membranes are pink. Skin is warm and dry. --12:05 Amanuel Nelson R.N. Interventions ID band on patient. To treatment room. --12:05 Amanuel Nelson R.N. PHYSICAL ASSESSMENT Ambulatory to room. GENERAL / NEURO / PSYCH: Alert. Oriented X 4. Appears in no acute distress. HEENT: Mucous membranes are pink. RESPIRATORY: Respirations not labored. Breath sounds within normal limits. CVS: Capillary refill less than 2 seconds. GI / : Abdomen soft and nontender. Bowel sounds within normal limits. Stool color normal. Stool heme negative. (POC test reference range: negative). SKIN: Skin is warm and dry. --12:07 Amanuel Nelson R.N. NURSING PROGRESS NOTES Pulse oximeter and NIBP monitor placed on patient; monitor alarms on. Patient gowned. Head of bed elevated. Call light placed in reach. Side rails up x 1. Bed placed in lowest position. Brakes of bed on. Patient ready for evaluation- chart flagged. --12:07 Amanuel Nelson R.N. 12:05 02/15/2017 Site #1 started via IV in the left antecubital space with an 20g angiocath, with aseptic technique and good blood return; one attempt. Blood drawn: rainbow set. Labeled in the presence of the patient and sent to the lab. Saline lock flushed with 10 mL saline. --12:53 Amanuel Nelson R.N. 12:50 02/15/2017 Started bag #1 1000 mL IV Fluids IV NS (Saline); at 999 mg/hr over 1 hour(s) via site #1 via IV pump. Allergies verified and confirmed 5 rights. IV patency established. IV site checked: no pain, redness, or swelling. IV flushed thoroughly pre- and post-medication administration. --12:53 Amanuel Nelson R.N. 12:30 02/15/17. BP: 138/62. HR: 70. RR: 16. O2 saturation: 96% on room air. Pain level now: 0/10. --12:57 Amanuel Nelson R.N. 13:56 02/15/2017 IV Fluids IV NS Discontinued: bag #1 infused. Total amount infused: 1000 mL. --13:56 Flores Jacobs R.N. 14:00. Reassessment after fluids administered. He is calm and resting quietly. Overall patient status is the same- he states feels the same. SKIN: Skin is warm and dry. --14:10 Flores Jacobs R.N. DISPOSITION / DISCHARGE Departure time: 1400. Condition at departure: stable. No learning barriers present. Discharge instructions provided and reviewed with the patient. Patient verbalized understanding. Written instructions provided in Bots[place]. The patient was discharged home and accompanied by dean of student services. He left the Emergency Department ambulatory and via private vehicle. FALL RISK ASSESSMENT: Fall risk assessment completed. No fall risk identified. --14:09 Flores Jacobs R.N. 14:00 02/15/17. BP: 129/61. HR: 64. RR: 16. O2 saturation: 99% on room air. Pain level now: 0/10. --14:09 Flores Jacobs R.N. Locked/Released at 02/15/2017 14:13 by Flores Jacobs R.N.
--- NOTE | 2017-02-15 13:46 | ED NURSING NOTES ---
Clinical Report - [facility] [place] [address] 02/15/2017 11:51 Patient: GRACE VALADEZ TRIAGE Triage time 11:58. Acuity: LEVEL 3. Chief Complaint: (Severe night sweats since appy surgery on January 25.). SEPSIS SCREEN: Sepsis Screen. Negative (no infection suspected/documented). --12:05 Amanuel Nelson R.N. 11:58 02/15/17. BP: 147/61. HR: 73. RR: 16. O2 saturation: 98% on room air. Temp: 97.8 F. Pain level now: 10/02. --12:05 Amanuel Nelson R.N. Weight: 87 kg stated. Height/Length: 67 inches Per Patient. BMI: 30.1. --12:02 Amanuel Nelson R.N. Medications Embrol injection. Enalapril Maleate Oral. Nabumetone Oral. PriLOSEC Oral. --12:00 Amanuel Nelson R.N. Lisinopril Oral. --12:01 Amanuel Nelson R.N. Allergies No Known Drug Allergy. --12:00 Amanuel Nelson R.N. History Arrived by private vehicle. Historian: patient and family. Accompanied by family. SOCIAL HX: Former smoker, end date 2001. No alcohol use or drug use. No recent travel. No known contact with a sick individual. ABUSE ASSESSMENT: No report of abuse. --12:05 Amanuel Nelson R.N. PROBLEMS: Appendicitis. Gastroesophageal Reflux. Gastroesophageal Reflux Disease. Arthritis. Hypertension. --12:01 Amanuel Nelson R.N. ADDITIONAL SURGERIES: Appendectomy. --12:01 Amanuel Nelson R.N. Assessment GENERAL / NEURO / PSYCH: Alert. Oriented X 4. Appears in no acute distress. Patient appears calm and cooperative. RESPIRATORY: Respirations not labored. Chest nontender. Breath sounds within normal limits. CVS: Capillary refill less than 2 seconds. GI / : Abdomen soft and nontender. SKIN: Mucous membranes are pink. Skin is warm and dry. --12:05 Amanuel Nelson R.N. Interventions ID band on patient. To treatment room. --12:05 Amanuel Nelson R.N. PHYSICAL ASSESSMENT Ambulatory to room. GENERAL / NEURO / PSYCH: Alert. Oriented X 4. Appears in no acute distress. HEENT: Mucous membranes are pink. RESPIRATORY: Respirations not labored. Breath sounds within normal limits. CVS: Capillary refill less than 2 seconds. GI / : Abdomen soft and nontender. Bowel sounds within normal limits. Stool color normal. Stool heme negative. (POC test reference range: negative). SKIN: Skin is warm and dry. --12:07 Amanuel Nelson R.N. NURSING PROGRESS NOTES Pulse oximeter and NIBP monitor placed on patient; monitor alarms on. Patient gowned. Head of bed elevated. Call light placed in reach. Side rails up x 1. Bed placed in lowest position. Brakes of bed on. Patient ready for evaluation- chart flagged. --12:07 Amanuel Nelson R.N. 12:05 02/15/2017 Site #1 started via IV in the left antecubital space with an 20g angiocath, with aseptic technique and good blood return; one attempt. Blood drawn: rainbow set. Labeled in the presence of the patient and sent to the lab. Saline lock flushed with 10 mL saline. --12:53 Amanuel Nelson R.N. 12:50 02/15/2017 Started bag #1 1000 mL IV Fluids IV NS (Saline); at 999 mg/hr over 1 hour(s) via site #1 via IV pump. Allergies verified and confirmed 5 rights. IV patency established. IV site checked: no pain, redness, or swelling. IV flushed thoroughly pre- and post-medication administration. --12:53 Amanuel Nelson R.N. 12:30 02/15/17. BP: 138/62. HR: 70. RR: 16. O2 saturation: 96% on room air. Pain level now: 0/10. --12:57 Amanuel Nelson R.N. 13:56 02/15/2017 IV Fluids IV NS Discontinued: bag #1 infused. Total amount infused: 1000 mL. --13:56 Flores Jacobs R.N. 14:00. Reassessment after fluids administered. He is calm and resting quietly. Overall patient status is the same- he states feels the same. SKIN: Skin is warm and dry. --14:10 Flores Jacobs R.N. DISPOSITION / DISCHARGE Departure time: 1400. Condition at departure: stable. No learning barriers present. Discharge instructions provided and reviewed with the patient. Patient verbalized understanding. Written instructions provided in Polish. The patient was discharged home and accompanied by criminal profiler. He left the Emergency Department ambulatory and via private vehicle. FALL RISK ASSESSMENT: Fall risk assessment completed. No fall risk identified. --14:09 Flores Jacobs R.N. 14:00 02/15/17. BP: 129/61. HR: 64. RR: 16. O2 saturation: 99% on room air. Pain level now: 0/10. --14:09 Flores Jacobs R.N. Locked/Released at 02/15/2017 14:13 by Flores Jacobs R.N.
--- NOTE | 2017-02-15 13:46 | ED ORDER SUMMARY ---
..... Patient: GRACE VALADEZ OrderSheet [facility] VisitID: [id number] [place] [address] 66y, M Registration Date/Time: 02/15/2017 ORDER SHEET Weight: 87.0 kg (stated) Allergies: No Known Drug Allergy GENERAL ORDERS: CBC w Diff Urgent (12:20 02/15/2017 Obdulia Guadarrama) (Ack 12:21 PWeiler ER Tech1) (12:45 JSimbeck R.N.) CMP Urgent (12:20 02/15/2017 Obdulia Guadarrama) (Ack 12:21 PWeiler ER Tech1) (12:45 Eugenie R.N.) Lactic Acid for Sepsis Protocol Urgent (12:20 02/15/2017 Obdulia Guadarrama) (Ack 12:21 PWeiler ER Tech1) (13:03 PWeiler ER Tech1) CT Abd/Pel w Cont (No) (07/24.3) Urgent (13:07 02/15/2017 Obdulia Guadarrama) (Ack 13:17 PWeiler ER Tech1) (Cancelled: Physician Order13:22 Obdulia Guadarrama) MEDICATION ORDERS: IV FLUIDS: IV NS : initial bolus none -, then 1000 mL/hr for X1 (NOW) (12:19 02/15/2017 Obdulia Guadarrama) (12:53 Eugenie R.N.) ORDER SHEET NOTES: [Electronically signed by Pilo Richards Dr. (14:00 02/15/2017)] [Electronically signed by Flores Jacobs R.N. (14:13 02/15/2017)] [Electronically locked/signed by Flores Jacobs R.N. (14:13 02/15/2017)]
--- NOTE | 2017-02-15 13:46 | ED CLINICAL REPORT ---
Clinical Report - Physicians/Mid Levels [facility] [address] [place] [address] 02/15/2017 11:51 Patient: GRACE VALADEZ Time Seen: 12:07; initial patient contact. Arrived- By private vehicle. Historian- patient. HISTORY OF PRESENT ILLNESS Chief Complaint: ABDOMINAL PAIN. At its maximum, severity described as moderate. When seen in the E.D., it was gone. It is described as "pain". No radiation. It is described as located in the right abdomen. This started yesterday and is now gone. No nausea, loss of appetite, vomiting or diarrhea. Similar symptoms previously: None. Recent medical care: The patient was seen recently by a health care provider (Sent from [facility] for suspicions of a colic vein thrombus.). REVIEW OF SYSTEMS No constipation, black stools, hematemesis, difficulty with urination or pain with urination. No urinary frequency, bloody stools, fever or chills. All systems otherwise negative, except as recorded above. PAST HISTORY Appendicitis. Gastroesophageal Reflux. Gastroesophageal Reflux Disease. Arthritis. Hypertension. SURGERIES: Appendectomy. Medications: Lisinopril Oral. Embrol injection. Enalapril Maleate Oral. Nabumetone Oral. PriLOSEC Oral. Allergies: No Known Drug Allergy. SOCIAL HISTORY Former smoker. No alcohol use or drug use. ADDITIONAL NOTES The nursing notes have been reviewed. PHYSICAL EXAM Vital Signs: 02/15/2017 11:58 BP: 147/61. HR: 73. RR: 16. O2 saturation: 98%. Temp: 97.8 F. Pain level now: 10/02. Have been reviewed. Hypertensive. Heart rate normal. Respiratory rate normal. Temperature normal. Oxygen saturation normal. Appearance: Alert. Oriented X3. No acute distress. ENT: Pharynx normal. The mucous membranes are not dry. CVS: Normal heart rate and rhythm. Heart sounds normal. Respiratory: No respiratory distress. Breath sounds normal. Abdomen: Soft and nontender. Bowel sounds normal. No organomegaly. No mass. Back: Normal inspection. No CVA tenderness. Skin: Skin warm and dry. Normal skin color. Extremities: No lower extremity edema. Neuro: Oriented X 3. LABS, X-RAYS, AND EKG Laboratory Tests: CBC w Diff: (GAGE: 02/15/2017 12:05) ( [facility] 02/15/2017 12:34) Final results Test Result Flag Units (Reference) WHITE BLOOD COUNT 6.7 K/uL (4.5-11.5) RED BLOOD COUNT 4.57 M/uL (4.50-5.90) HEMOGLOBIN 13.2 L gm/dL (13.5-17.5) HEMATOCRIT 39.7 L % (41.0-53.0) MEAN CELL VOLUME 87 fL (80-100) MEAN CORPUSCULAR HGB 29 pg (26-34) MEAN CORPUSCULAR HGB CONC 33 g/dL (31-37) RED CELL DISTRIBUTION WIDTH 14.0 % (11.6-14.8) PLATELET COUNT 493 H K/uL (150-400) NEUTROPHIL % 50.6 % (50-75) LYMPH % 34.8 % (25-40) MONO % 12.1 % (3-14) EOSINOPHIL % 1.9 % (0-4) BASOPHIL % 0.6 % (0-2) [id number]: (GAGE: 02/15/2017 12:30) ( [facility] 02/15/2017 13:04) Final results Test Result Flag Units (Reference) LACTIC ACID SEPSIS PROTOCOL 1.7 mmol/L (0.4-2.0) CMP: (GAGE: 02/15/2017 12:05) ( [facility] 02/15/2017 12:41) Final results Test Result Flag Units (Reference) GLUCOSE 117 H mg/dL (70-110) BUN 11 mg/dL (7-18) CREATININE 1.3 mg/dL (0.6-1.3) Estimated GFR 58.35 mL/min Estimated GFR- >60 mL/min Note: Persistent reduction over 3 months in eGFR<60 mL/min/1.73 m2 defines CKD. Patients with eGFR values>=60 mL/min/1.73 m2 may also have CKD if evidence ofpersistent proteinuria. Additional information may be foundat www.kidney.org. SODIUM 140 mmol/L (136-145) POTASSIUM 4.1 mmol/L (3.5-5.1) CHLORIDE 104 mmol/L (98-107) CARBON DIOXIDE 24 mmol/L (21-32) CALCIUM 8.8 mg/dL (8.5-10.1) TOTAL PROTEIN 8.0 g/dL (6.4-8.2) ALBUMIN 3.5 g/dL (3.3-5.0) BILIRUBIN, TOTAL 0.6 mg/dL (0.0-1.0) ALKALINE PHOSPHATASE 131 H U/L (46-116) AST (SGOT) 38 H U/L (15-37) ALT (SGPT) 65 U/L (12-78) . PROGRESS AND PROCEDURES Consult obtained from surgery. call returned 13:42 Dr. Hanks, noah Lactate and pain free and eating w/out diarrhea, likely no clot, D/C's pt from ED to f/u w/ PCP. Disposition: Discharged home in good condition. Condition: good. CLINICAL IMPRESSION Acute generalized abdominal pain of unknown cause, now resolved. INSTRUCTIONS Your Current Medications: CONTINUE TAKING THE FOLLOWING MEDICATIONS: Embrol injection*. Enalapril Maleate Oral. Lisinopril Oral. Nabumetone Oral. PriLOSEC Oral. Follow-up: Follow up with your doctor in about two days. Call for an appointment. Blood pressure screening was not performed during this visit because the patient has an active diagnosis of hypertension. (Electronically signed by Pilo Richards Dr. 02/15/2017 14:00)
--- NOTE | 2017-02-15 14:13 | ED MED RECONCILIATION SUMMARY ---
Patient: GRACE VALADEZ Medication Reconciliation Report [facility] VisitID: [id number] [address] [place] [address] 66y, M Registration Date/Time: 02/15/2017 Weight: 87.0 kg Height/Length: 67 in. BMI: 30.1 ALLERGIES: No Known Drug Allergy The patient's Home Medications are listed below: CONTINUE TAKING THE FOLLOWING MEDICATIONS: Embrol injection Enalapril Maleate Oral Lisinopril Oral Nabumetone Oral PriLOSEC Oral The source(s) of the original Home Medication information: Not obtained. The following Medications were given to the patient in the Emergency Department: IV NS IV Fluids bolus 0, then 999 mg/hr, administered: 02/15/2017 12:50:00 PM The following Medications were prescribed to the patient: None.
--- NOTE | 2017-02-15 14:13 | ED MAR SUMMARY ---
..... Medication Administration Record [facility] [address] [address] Patient: GRACE VALADEZ Visit ID: [id number] 66y, M Weight: 87.0 kg Height/Length: 67 in BMI: 30.1 ALLERGIES: No Known Drug Allergy Start 12:50 02/15/2017 Amanuel Nelson R.N., Stop 13:56 02/15/2017 Flores Jacobs R.N. Medication Administered: IV NS (SALINE), Dose: IV Fluids over 1 hour(s), Rate: 999 mg/hr, Dispensed: 1000 mL bag, Site: #1 left AC. Medication Ordered: IV NS : initial bolus none -, then 1000 mL/hr for X1 (NOW).
--- NOTE | 2017-02-15 14:13 | ED MED RECONCILIATION SUMMARY ---
Patient: GRACE VALADEZ Medication Reconciliation Report [facility] VisitID: [id number] [address] [place] [address] 66y, M Registration Date/Time: 02/15/2017 Weight: 87.0 kg Height/Length: 67 in. BMI: 30.1 ALLERGIES: No Known Drug Allergy The patient's Home Medications are listed below: CONTINUE TAKING THE FOLLOWING MEDICATIONS: Embrol injection Enalapril Maleate Oral Lisinopril Oral Nabumetone Oral PriLOSEC Oral The source(s) of the original Home Medication information: Not obtained. The following Medications were given to the patient in the Emergency Department: IV NS IV Fluids bolus 0, then 999 mg/hr, administered: 02/15/2017 12:50:00 PM The following Medications were prescribed to the patient: None.
--- NOTE | 2017-02-15 14:13 | ED MAR SUMMARY ---
..... Medication Administration Record [address] [place] [address] Patient: GRACE VALADEZ Visit ID: [id number] 66y, M Weight: 87.0 kg Height/Length: 67 in BMI: 30.1 ALLERGIES: No Known Drug Allergy Start 12:50 02/15/2017 Amanuel Nelson R.N., Stop 13:56 02/15/2017 Flores Jacobs R.N. Medication Administered: IV NS (SALINE), Dose: IV Fluids over 1 hour(s), Rate: 999 mg/hr, Dispensed: 1000 mL bag, Site: #1 left AC. Medication Ordered: IV NS : initial bolus none -, then 1000 mL/hr for X1 (NOW).
--- NOTE | 2017-02-15 14:13 | ED DISCHARGE INSTRUCTIONS ---
Patient: GRACE VALADEZ General Instructions [facility] VisitID: [id number] [place] [address] 66y, M Registration Date/Time: 02/15/2017 Acute generalized abdominal pain of unknown cause, now resolved. INSTRUCTIONS Your Current Medications: CONTINUE TAKING THE FOLLOWING MEDICATIONS: Embrol injection*. Enalapril Maleate Oral. Lisinopril Oral. Nabumetone Oral. PriLOSEC Oral. Follow-up: Follow up with your doctor in about two days. Call for an appointment. Blood pressure screening was not performed during this visit because the patient has an active diagnosis of hypertension. ADDITIONAL INFORMATION Abdominal Pain,Uncertain Cause [Male] Based on your visit today, the exact cause of your abdominalpain is not clear. Your exam and tests do not indicate a dangerous cause at this time. However, the signs of a serious problem may take more time to appear. Although your evaluation was reassuring today, sometimes early in the course of many conditions, exam and lab tests can appear normal. Therefore, it is important for you to watch for any new symptoms or worsening of your condition. Causes It may not be obvious what caused your symptoms. Pay attention to things that do seem to make your symptoms worse or better and discuss this with your doctor when you follow up. Diagnosis The evaluation of abdominal pain in the emergency department may onlyrequire an exam by the doctor or it may include blood, urine or imaging studies, depending on many factors. Sometimes exams and tests can identify a cause but in many cases, a clear cause is not found. Further testing at follow up visits may help to suggest a clear diagnosis. Home Care Rest as much as possible until your next exam. Try to avoid any medications (unless otherwise directed by your doctor), foods, activities, or other factors that you may have contributed to your symptoms. Try to eat foods that you know that you have tolerated well in the past. Certain diets may be recommended for some conditions that cause abdominal pain. However, since the cause of your symptoms may not be clear, discuss your diet more with your primary care provider or specialist for further recommendations. Eating several small meals per day as opposed to 2 or 3 larger meals may help. Monitor closely for anything that may make your symptoms worse or better. Pay close attention to symptoms below that may indicate worsening of your condition. Follow Up and Precautions See your doctoras instructed or sooneror if your symptoms are not improving.In some cases, you may need more testing. When to Seek Medical Attention Contact your doctor or see medical attention ifany of the following occur: Pain is becoming worse You are unable to take your medications due to excessive vomiting Swelling of the abdomen Fever of 100.4F (38C) or higher, or as directed by your health care provider Blood in vomit or bowel movements (dark red or black color) Jaundice (yellow color of eyes and skin) New onset of weakness, dizziness or fainting New onset of chest, arm, back, neck or jaw pain You have been given the following additional information: Abdominal Pain, Unknown Cause, (Male) (Electronically signed by Pilo Richards Dr. 02/15/2017 14:00)
== END 2017-02-15 14:00 | disposition home or self-care (01) ==
LOC: ED SRH 11:47
DX: R10.84 Generalized abdominal pain (principal); I10 Essential (primary) hypertension; K21.9 Gastro-esophageal reflux disease without esophagitis; Z79.899 Other long term (current) drug therapy; Z87.891 Personal history of nicotine dependence
CPT/HCPCS: 90074; 90100; 92031; 95059